=== PATIENT | female | born 1980 | race Caucasian/White ===

== ENCOUNTER 2017-01-12 16:28 | Emergency (ER) | payer MEDICAID, OTHER ==
[~2017-01-12] VITALS: Ht 165.1 cm; Wt 90.2 kg
[2017-01-12 16:36] VITALS: Ht 165.1 cm; Wt 90.2 kg
--- NOTE | 2017-01-12 18:36 | ERD ---
ER Documentation Chief Complaint Chief Complaint lt bleeding passed clot after papsmear and vag us today, 7wks preg lmp10/1 HPI 7 week female reports bleeding and light clotting after pap vaginal US today , called [facility]. told to come into ED , patient reports dysuria ROS All systems reviewed and are negative except as per history of present illness. Physical Exam Vitals Vital Signs Date Time Temp Pulse Resp B/P Pulse Ox O2 Delivery O2 Flow Rate FiO2 01/12/17 16:36 98.8 92 20 144/86 99 Physical Exam Const: Well-nourished well-appearing well-hydrated 36-year-old female in no acute distress Head: Eyes: ENT: Neck: Resp: Cardio: Abd: Symmetric, soft, pelvic tenderness, no CVA tenderness Skin: Back: No midline or flank tenderness Ext: Neur: Awake and alert Psych: Normal Mood and Affect Results 24 hrs Laboratory Tests Test 01/12/17 18:40 Urine Color YELLOW Urine Clarity CLEAR Urine pH 6.0 Urine Specific [place] 1.017 Urine Ketones NEGATIVEmg/dL Urine Nitrite NEGATIVEmg/dL Urine Bilirubin NEGATIVEmg/dL Urine Urobilinogen 1+mg/dL Urine Leukocyte Esterase NEGATIVELeu/ul Urine Microscopic RBC 2/HPF Urine Microscopic WBC 1/HPF Urine Bacteria FEW/HPF Urine Hemoglobin 2+mg/dL Urine Glucose NEGATIVEmg/dL Urine Total Protein NEGATIVEmg/dl Urinalysis negative for evidence of infection. Procedures/MDM PROCEDURE: US OB. CLINICAL INDICATION: Vaginal bleeding TECHNIQUE: Transabdominal and transvaginal pelvic ultrasound are performed. COMPARISON: None. FINDINGS: The uterus is normal in echogenicity and anteverted in orientation.. No focal fibroids are identified. Within the endometrial canal, gestational sac with normal double decidual reaction is seen. pole and yolk sac are identified. [place] rump length measures 1.15 cm corresponding to an estimated age of 7 weeks 2 days. Positive cardiac activity is detected rate of 114 8 beats per minute. Multiple subchorionic hemorrhages are seen. The largest of which measures 4.2 cm. This should be followed. The right ovary is identified. The left ovary is not seen. There is no complex adnexal masses. Normal Doppler flow is noted of the right ovary. The right ovary measures 3.9 x 2.2 cm There is small amount of free fluid adjacent to the right ovary. IMPRESSION: 1. Single live insuring of approximately 7 weeks 2 days. 2. Positive cardiac activity detected. 3. Multiple subchorionic hemorrhages are seen. Largest measures 4.2 cm in diameter. This should be followed closely 4. Normal right ovary. 5. Left ovary not visualized. There are no complex adnexal masses. 6. Small simple appearing free fluid adjacent to the right ovary Electronically viewed and signed by .Armaan Bauer MD, on 01/12/2017 20:07 This 36-year-old female presents to emergency department for evaluation of vaginal bleeding after vaginal ultrasound today. Patient was instructed to come to emergency department for evaluation. Patient has had her normal laboratory testing including beta hCG qualitative done today I do not feel that it is necessary to repeat labs, plan to order repeat ultrasound, and urinalysis , radiologist's interpretation ultrasound findings: Single live insuring of approximately 7 weeks 2 days. Positive cardiac activity detected. Multiple subchorionic hemorrhages are seen. Largest measures 4.2 cm in diameter. This should be followed closely, Normal right ovary, Left ovary not visualized. There are no complex adnexal masses. 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 Return to emergency department for increased bleeding, clotting, dizziness, or abdominal pain. Patient is stable with no new complaints during ER course, clinically there is no current evidence to suggest urinary tract infection, pyelonephritis, ovarian torsion, ectopic or any other emergent condition appearing to require further evaluation or hospitalization. I feel the patient is stable for discharge at this time. I have discussed results, examination findings, the treatment plan with the patient and family present prior to discharge. Indications for emergent reevaluation, side effects of medication were also discussed. All questions were answered. Patient verbalizes understanding and agrees with plan of care. Departure Diagnosis: Primary Impression: Vaginal bleeding in patient at less than 20 weeks gestation Additional Impression: Subchorionic hemorrhage in first trimester Fetus number: single or unspecified fetus Qualified Code: O41.8X10 - Subchorionic hemorrhage of placenta in first trimester, single or unspecified fetus Condition: Good Patient Instructions: Bleeding During Early Additional Instructions: Thank you for for coming to [facility] for your care today. Please ask your nurse or provider if you have questions about your care today and do not leave until all your questions have been answered. Please use any medications given as directed and follow-up with your doctor (or the doctor you were referred to) in the next 2-3 days. If you do not have a primary care doctor you may follow up at the [facility] (listed below). You may also use motrin and tylenol as needed for fever and/or pain unless instructed otherwise by your provider or nurse. Indications for more urgent follow-up have been discussed, but you may return to the Emergency Department at ANY time for any worrisome or worsening symptoms. If you have abdominal pain, please know that no test or exam you received is perfect and you should follow up within 8 hours for continued pain. If you had any imaging studies today, such as an X-Ray or CT Scan, these studies will be reviewed later by a radiologist. You will be called if there are important findings that were not identified today, so make sure the contact information you provided at registration is correct. If you received any narcotic pain control medicine today, such as Vicodin, Morphine or Dilaudid, your coordination and judgment may be affected for a number of hours. Please do not drive or operate heavy machinery, and you may want someone to assist you at home. If you were given a prescription for narcotic medication, be aware that it is very addictive- use sparingly and only if necessary. BRANDEN FARRAR Jan 12, 2017 18:36
[2017-01-12 19:44] LABS: ADD UMIC YES; UR ASCORBIC ACID 40 mg/dL (NEGATIVE); UR BACTERIA FEW /HPF (NONE SEEN); UR BILIRUBIN (Dip) NEGATIVE (NEGATIVE); UR BLOOD (Dip) 2+ mg/dL (NEGATIVE); UR CLARITY CLEAR (CLEAR); UR COLOR YELLOW (YELLOW); UR GLUCOSE (Dip) NEGATIVE (NEGATIVE); UR KETONES (Dip) NEGATIVE (NEGATIVE); UR LEUKOCYTE ESTERASE (Dip) NEGATIVE Leu/ul (NEGATIVE); UR NITRITE (Dip) NEGATIVE (NEGATIVE); UR RBC 2 /HPF (0-5); UR SPECIFIC GRAVITY (Dip) 1.017 (1.003-1.030); UR TOTAL PROTEIN (Dip) NEGATIVE (NEGATIVE); UR UROBILINOGEN (Dip) 1+ mg/dL (NEGATIVE)
--- NOTE | 2017-01-12 20:07 | RADRPT ---
PROCEDURE: US OB. CLINICAL INDICATION: Vaginal bleeding TECHNIQUE: Transabdominal and transvaginal pelvic ultrasound are performed. COMPARISON: None. FINDINGS: The uterus is normal in echogenicity and anteverted in orientation.. No focal fibroids are identifi ed. Within the endometrial canal, gestational sac with normal double decidual reaction is seen. Fet al pole and yolk sac are identified. [place] rump length measures 1.15 cm corresponding to an estimate d age of 7 weeks 2 days. Positive cardiac activity is detected rate of 114 8 beats per minute. Multiple subchorionic hemorrhages are seen. The largest of which measures 4.2 cm. This should be fo llowed. The right ovary is identified. The left ovary is not seen. There is no complex adnexal masses. [place] l Doppler flow is noted of the right ovary. The right ovary measures 3.9 x 2.2 cm There is small amount of free fluid adjacent to the right ovary. IMPRESSION: 1. Single live insuring of approximately 7 weeks 2 days. 2. Positive cardiac activity detected. 3. Multiple subchorionic hemorrhages are seen. Largest measures 4.2 cm in diameter. This should be followed closely 4. Normal right ovary. 5. Left ovary not visualized. There are no complex adnexal masses. 6. Small simple appearing free fluid adjacent to the right ovary RPTAT: HH .Armaan Bauer MD, MD Date Time Electronically viewed and signed by .Armaan Bauer MD, MD on 01/12/2017 20:07 .W/
== END 2017-01-12 21:31 | disposition left against medical advice (07) ==
LOC: FTE 16:28 → E/R 21:31
DX: O34.91 Maternal care for abnormality of pelvic organ, unspecified, first trimester (principal); Z3A.01 Less than 8 weeks gestation of pregnancy
CPT/HCPCS: 76801; 76817; 81001; Z7502